=== PATIENT | male | born 1975 | race Caucasian/White ===

== ENCOUNTER 2021-01-25 18:53 | Emergency (ER) | payer OTHER ==
[2021-01-25] MEDS ORDERED: Lidocaine 1% PF 2 ML SDV INJECT ONE (19:10)
--- NOTE | 2021-01-25 19:13 | EDM.PDOC ---
ED HPI GENERAL MEDICAL PROBLEM - General Chief Complaint: Laceration Stated Complaint: MOUTH PAIN Time Seen by Provider: 01/25/21 18:58 Source of Information: Reports: Patient History Limitations: Reports: No Limitations - History of Present Illness INITIAL COMMENTS - FREE TEXT/NARRATIVE: Is a 45-year-old male who presents today for laceration to his right corner of his cheek and also to the roof of his mouth. Patient dates that he was using a saw at work when he slipped and it went into his mouth. Patient has a bruise to the roof of his mouth of the soft palate and lateral to the corner of his mouth. Patient denies any other injury. Patient able to swallow breathing has no complaints of pain any neurological damage in the moment. - Related Data Allergies Allergy/AdvReac Type Severity Reaction Status Date / Time No Known Allergies Allergy Verified 01/25/21 19:11 Home Meds: Home Meds . [No Known Home Meds] 01/25/21 [History] ED ROS GENERAL - Review of Systems Review Of Systems: See Below Constitutional: Reports: No Symptoms HEENT: Reports: No Symptoms Respiratory: Reports: No Symptoms Cardiovascular: Reports: No Symptoms Endocrine: Reports: No Symptoms GI/Abdominal: Reports: No Symptoms : Reports: No Symptoms Musculoskeletal: Reports: No Symptoms Skin: Reports: Other (laceration ) Neurological: Reports: No Symptoms Psychiatric: Reports: No Symptoms Hematologic/Lymphatic: Reports: No Symptoms Immunologic: Reports: No Symptoms ED EXAM, SKIN/RASH Exam: See Below Exam Limited By: No Limitations General Appearance: Alert, WD/WN, No Apparent Distress Throat/Mouth: Other (Laceration to corner right mouth 1 mm. An abrasion to the soft palate of the mouth) Respiratory/Chest: No Respiratory Distress, Lungs Clear, Normal Breath Sounds Cardiovascular: Normal Peripheral Pulses GI/Abdominal: Normal Bowel Sounds, Soft, Non-Tender Extremities: Normal Inspection, Normal Range of Motion Neurological: Alert, Oriented ED SKIN PROCEDURES - Laceration/Wound Repair Mouth Appearance: Superficial Distal NVT: Neuro & Vascular Intact Anesthetic Type: Local Local Anesthesia - Lidocaine (Xylocaine): 1% Plain Local Anesthetic Volume: 2cc Skin Prep: Providone-Iodine (Betadine) Closed with: Sutures Lac/Wound length In cm: 2 Suture Size: 5-0 # of Sutures: 2 Suture Type: Running Course - Vital Signs Last Recorded V/S: Last Vital Signs Temp 96.4 F L 01/25/21 19:09 Pulse 90 01/25/21 19:09 Resp 15 01/25/21 19:09 BP 118/60 01/25/21 19:09 Pulse Ox 98 01/25/21 19:09 - Orders/Labs/Meds Meds: Medications Discontinued Medications Generic Name Dose Route Start Last Admin Trade Name Hector PRN Reason Stop Dose Admin Lidocaine HCl 2 ml 01/25/21 19:10 Lidocaine 1% Pf 2 Ml Sdv INJECT 01/25/21 19:11 ONETIME ONE Departure - Departure Time of Disposition: : Disposition: Home, Self-Care 01 Clinical Impression: Laceration of mouth - Discharge Information *PRESCRIPTION DRUG MONITORING PROGRAM REVIEWED*: Not Applicable *COPY OF PRESCRIPTION DRUG MONITORING REPORT IN PATIENT MARJORIE: Not Applicable Instructions: Mouth Laceration, [id number] Referrals: Shreyas Simpson MD [Primary Care Provider] - Forms: ED Department Discharge Additional Instructions: The following information is given to patients seen in the emergency department who are being discharged to home. This information is to outline your options for follow-up care. We provide all patients seen in our emergency department with a follow-up referral. The need for follow-up, as well as the timing and circumstances, are variable depending upon the specifics of your emergency department visit. If you don't have a primary care physician on staff, we will provide you with a referral. We always advise you to contact your personal physician following an emergency department visit to inform them of the circumstance of the visit and for follow-up with them and/or the need for any referrals to a consulting spec ialist. The emergency department will also refer you to a specialist when appropriate. This referral assures that you have the opportunity for follow-up care with a specialist. All of these measure are taken in an effort to provide you with optimal care, which includes your follow-up. Under all circumstances we always encourage you to contact your private physician who remains a resource for coordinating your care. When calling for follow-up care, please make the office aware that this follow-up is from your recent emergency room visit. If for any reason you are refused follow-up, please contact the [facility] Emergency Department at and asked to speak to the emergency department charge nurse. Please follow up with your primary care physician. If you do not have a primary care physician, see below: [facility] [address] [place] [address] [facility] [address] [place] [address] Seen today at have a laceration to the corner mouth and the roof of your mouth. The laceration over your mouth cannot be repaired facial hole has a big piece of skin missing and we cannot stretch it to close it. We recommend you keep using oral antibiotic mouthwash to help keep the area clean and should know. Near. Develop any signs or symptom please return to the ED. We repaired 2 sutures in the corner mouth the need to come out next 7 to 10 days. Please keep the area dry for the first day otherwise you can get it wet. Also apply bacitracin to the area. If you have any other concerning signs or symptoms return to the ED. Sepsis Event Note (ED) - Focused Exam Vital Signs: Vital Signs Temp Pulse Resp BP Pulse Ox 01/25/21 19:09 96.4 F L 90 15 118/60 98 - Assessment/Plan Plan: 45-year-old male presents today for laceration to the corner of his mouth and abrasions of the soft palate. This seems to be no deeper injuries into the soft palate. Patient is neurologically intact has a complains of pain. Patient will be sent home with oral antibiotic mouthwash and will follow up as outpatient.
== END 2021-01-25 19:36 | disposition home or self-care (01) ==
LOC: MW.ED 18:53
DX: S01.512A Laceration without foreign body of oral cavity, initial encounter (principal); W22.8XXA Striking against or struck by other objects, initial encounter; Y92.89 Other specified places as the place of occurrence of the external cause; Y99.0 Civilian activity done for income or pay
CPT/HCPCS: 12011; 99282-25; 99283